=== PATIENT | male | born 1975 | race Caucasian/White ===

== ENCOUNTER 2017-12-26 22:55 | Emergency (ER) | payer BC ==
[2017-12-26 23:06] VITALS: BP 123/91; PULSE 80; TEMP 98.1; BMI 24.4
[2017-12-26 23:31] LABS: BASO % 0.3 % (0-2.0); EOS % 0.6 % (0-4.5); HEMATOCRIT 41.4 % (35.4-49); HEMOGLOBIN 14.2 GM/dl (11.7-16.9); LYMPH % 37.2 % (8-40); MCH 31.1 pg (25.7-33.7); MCHC 34.3 g/dl (32.0-35.9); MEAN CELL VOLUME 90.6 fl (80-96); MEAN PLT VOLUME 7.3 fl (7.5-11.1); MONO % 9.2 % (3.8-10.2); NEUT % 52.7 % (42.8-82.8); PLATELET COUNT 296 K/MM3 (134-434); RBC 4.57 M/mm3 (4.00-5.60); RDW 11.6 % (11.9-15.9); WHITE BLOOD COUNT 4.4 K/mm3 (4.0-10.8)
[2017-12-26 23:38] LABS: ALBUMIN 4.2 g/dl (3.5-5.0); ALK PHOS 44 U/L (32-92); ANION GAP 6 (8-16); BILIRUBIN,TOTAL 0.8 mg/dl (0.2-1.0); BLOOD UREA NITROGEN 15 mg/dl (7-18); CALCIUM 8.7 mg/dl (8.4-10.2); CHLORIDE 101 mmol/L (98-107); CO2 27 mmol/L (22-28); CREATININE 1.1 mg/dl (0.6-1.3); GLUCOSE,RANDOM 114 mg/dl (74-106); POTASSIUM 3.9 mmol/L (3.5-5.1); SGOT/AST 25 U/L (10-42); SGPT/ALT 31 U/L (10-40); SODIUM 134 mmol/L (136-145); TOT PROT 7.6 g/dl (6.4-8.3)
[2017-12-27] MEDS ORDERED: SODIUM CHLORIDE 1,000 ML IV STA ×2 (00:07→00:08)
[2017-12-27] MEDS ORDERED: ONDANSETRON 4 MG/2 ML VIAL IVPUSH ONE ×2 (00:07→00:55)
[2017-12-27] MEDS ORDERED: PANTOPRAZOLE SODIUM 40 MG VIAL IVPUSH ONE (00:08)
[2017-12-27] MEDS ORDERED: PANTOPRAZOLE SODIUM 40 MG VIAL ONE (00:11)
[2017-12-27] MEDS ORDERED: ONDANSETRON 4 MG/2 ML VIAL ONE ×2 (00:11→00:55)
--- NOTE | 2017-12-27 00:34 | PDOC ---
History of Present Illness - General Chief Complaint: Nausea/Vomiting Stated Complaint: N/V/D History Source: Patient Exam Limitations: No Limitations - History of Present Illness Initial Comments: 12/27/17 00:28 42yoM hx of GERD on nexium presents w/ n/v/d x today. + recent JUAN over past few days w/ subj fevers, body aches, runny nose. [place] better so traveled to [place] on business but today developed above symptoms. no fever during GI illness, no documented fever earlier. Unable to tolerate PO today, endorses that this evening vomit looked "black". Diarrhea brown. No gross blood in either vomit or stool. No chest pain, no difficulty breathing, no abd pain. No known hx of ulcer dz (never had an endoscopy). Pt is visiting [place] on business from [place], is due to fly back home this morning. Past History - Past Medical History Allergies/Adverse Reactions: Allergies Allergy/AdvReac Type Severity Reaction Status Date / Time Penicillins Allergy Verified 12/26/17 22:58 Home Medications: Ambulatory Orders Esomeprazole Magnesium [Nexium 24Hr] 40 mg PO DAILY 12/26/17 Simvastatin 10 mg PO DAILY 12/26/17 Ondansetron HCl [Zofran] 4 mg PO TID PRN 3 Days #9 tablet 12/27/17 COPD: No GI Disorders: Yes (GERD) Hypercholesterolemia: Yes - Surgical History Abdominal Surgery: No GI Surgery: No - Suicide/Smoking/Psychosocial Hx Smoking History: Never smoked Review of Systems - Review of Systems Comments:: 12/27/17 00:30 see HPI All Other Systems: Reviewed and Negative *Physical Exam - Vital Signs Last Vital Signs Temp Pulse Resp BP Pulse Ox 98.1 F 80 16 123/91 98 12/26/17 23:00 12/26/17 23:00 12/26/17 23:00 12/26/17 23:00 12/26/17 23:00 - Physical Exam Comments: 12/27/17 00:31 NAD, well appearing MMM, OP wnl, no e/o bleeding in OP neck neg for crepitus RRR, no crackles, no m/r/g CTABL, no w/r/r, no crackles soft, NT to deep palpation, nondistended, no guarding, no rebound no bruising neuro grossly intact A&O x 3, gait WNL. ED Treatment Course - LABORATORY CBC & Chemistry Diagram: 12/26/17 23:10 12/26/17 23:10 - ADDITIONAL ORDERS Additional order review: Laboratory Results 12/26/17 23:10 Sodium 134 L Potassium 3.9 Chloride 101 Carbon Dioxide 27 Anion Gap 6 L BUN 15 Creatinine 1.1 Creat Clearance w eGFR > 60 Random Glucose 114 H Calcium 8.7 Total Bilirubin 0.8 AST 25 ALT 31 Alkaline Phosphatase 44 Total Protein 7.6 Albumin 4.2 12/26/17 23:10 RBC 4.57 MCV 90.6 MCHC 34.3 RDW 11.6 L MPV 7.3 L Neutrophils % 52.7 Lymphocytes % 37.2 Monocytes % 9.2 Eosinophils % 0.6 Basophils % 0.3 - Medications Given in the ED: ED Medications Discontinued Medications Generic Name Dose Route Start Last Admin Trade Name Freq PRN Reason Stop Dose Admin Ondansetron HCl 4 mg 12/27/17 00:07 12/27/17 00:16 Zofran Injection IVPUSH 12/27/17 00:08 4 mg ONCE ONE Administration Pantoprazole Sodium 40 mg 12/27/17 00:08 12/27/17 00:16 Protonix Iv IVPUSH 12/27/17 00:09 40 mg ONCE ONE Administration Medical Decision Making - Medical Decision Making 12/27/17 00:32 42yoM hx of gastritis on nexium presnets w/ n/v/d, history concerning for report of "black" emesis x tonight after full day of vomiting. ddx includes inflammed gastric mucosa, mild hussain-burnette tear without perforation, bleeding ulcer. Pt seeking flight clearance. - labs w/ H/H - ivf, sxs control - PO challenge - reeval. 12/27/17 01:04 labs reviewed and unremarkable persistent nausea after first round of zofran. plan to re-dose. + hx of agitation after compazine. 12/27/17 02:00 pt vomited small amount of food stuff. no black material, no blood, no coffee- ground emesis. Pt states that the black emesis has now resolved x 2 episdoes of vomiting. 12/27/17 04:30 some improvement in symptoms overnight. tolerating small amounts of PO. Does not feel well enough to fly. Rx sent to [facility] in [place]. Pt will arrange to stay another day. *DC/Admit/Observation/Transfer Diagnosis at time of Disposition: Nausea and vomiting - Discharge Dispostion Disposition: HOME Admit: No - Prescriptions Prescriptions: Ondansetron HCl [Zofran] 4 mg PO TID PRN 3 Days #9 tablet PRN Reason: Nausea And/Or Vomiting - Referrals Referrals: ON STAFF,NOT [Primary Care Provider] - - Patient Instructions Printed Discharge Instructions: DI for Vomiting -- Adult Additional Instructions: Prescription for Zofran has been setn to [facility] [employer] in [place]. drink plenty of fluids eat a bland diet -- bread, crackers, rice, fruit. Advance diet slowly as tolerated. Medication plan: zantac 75mg (over the counter) 1-2 tabs 2x daily for 7 days Zofran (prescription) 1-3x daily as needed for nausea and vomiting Continue nexium TUMS or Pepto Bismol for added stomach relief as needed. Return to ER for: vomiting blood, blood in stool unable to tolerate food or drink again. - Post Discharge Activity Forms/Work/School Notes: Back to Work
[2017-12-27] MEDS ORDERED: METOCLOPRAMIDE HCL 10 MG TABLET (FP) PO ONE ×2 (01:59→02:03)
[2017-12-27] MEDS ORDERED: MAG HYDROX/AL HYDROX/SIMETH 30 ML UNIT-DOSE CUP PO ONE (01:59)
[2017-12-27] MEDS ORDERED: MAG HYDROX/AL HYDROX/SIMETH 30 ML UNIT-DOSE CUP ONE (02:03)
[2017-12-27] MEDS ORDERED: METOCLOPRAMIDE HCL INJECTION 10 MG/2 ML VIAL IVPUSH ONE (02:50)
== END 2017-12-27 04:44 | disposition home or self-care (01) ==
LOC: FER 22:55
PROC: 3E033GC Introduction of Other Therapeutic Substance into Peripheral Vein, Percutaneous Approach (ICD-10-PCS; principal; 2017-12-26)
PROC: 3E0337Z Introduction of Electrolytic and Water Balance Substance into Peripheral Vein, Percutaneous Approach (ICD-10-PCS; 2017-12-26)
DX: R11.2 Nausea with vomiting, unspecified (principal); E78.00 Pure hypercholesterolemia, unspecified; K21.9 Gastro-esophageal reflux disease without esophagitis
CPT/HCPCS: 36415; 80053; 85025; 99282-25